=== PATIENT | male | born 1945 | race Caucasian/White ===

== ENCOUNTER 2023-07-13 09:51 | Day surgery (SDC) | payer OTHER ==
--- NOTE | 2023-07-02 15:42 | RAD REPORT ---
EXAM DESCRIPTION: Sandor Foster (2 Views)07/02/2023 3:28 pm CLINICAL HISTORY: Preop for spacer gel placement COMPARISON: 2009 FINDINGS: The lungs are moderately hyperaerated The lungs appear clear of acute infiltrate. The heart is normal size IMPRESSION: No acute abnormalities displayed
[2023-07-02 16:10] LABS: Absolute Basophils 0.1 K/uL (0-0.5); Absolute Eosinophils 0.3 K/uL (0-0.5); Absolute Lymphocytes (CBC) 1.7 K/uL (0.7-4.9); Absolute Monocytes 0.3 K/uL (0.1-1.3); Absolute Neutrophil 3.4 K/uL (1.8-8.0); Basophils % 1.5 % (0-1.3); Eosinophils % 4.8 % (0-4.4); Hematocrit 42.3 % (39.6-49.0); Hemoglobin 14.7 g/dL (13.6-17.9); Lymphocytes % 29.4 % (15.3-44.8); MCH 30.3 pg (27.0-35.0); MCHC 34.8 g/dL (32.0-36.0); MPV 9.2 fL (7.6-11.3); Monocytes % 4.7 % (3.3-12.3); Neutrophils % 59.6 % (41.7-73.7); Nucleated Red Blood Cells % 0.1 % (0-0); Platelets 176 thou/uL (152-406); RBC Red Blood Cell Count 4.86 M/uL (4.33-5.43); Red Cell Distribution Width 13.7 % (12.1-15.2)
[2023-07-02 16:13] LABS: PT Prothrombin Time 11.7 SECONDS (9.5-12.5); Protime INR 1.07
[2023-07-02 16:26] LABS: Anion Gap 6.6 mEq/L (5.0-15.0); Potassium 3.6 mEq/L (3.5-5.1)
--- NOTE | 2023-07-08 17:11 | EKG ---
Test Date: 2023-07-02 Test Time: 15:14:00 [employer] Cartoonist: DIMITRIOS MEASUREMENT RESULTS: Intervals: Rate: 81 VT: 184 QRSD: 88 QT: 392 QTc: 455 [place]: P: 85 VT: 184 QRS: 85 T: 86 INTERPRETIVE STATEMENTS: Normal sinus rhythm Normal ECG No previous ECG available for comparison Electronically Signed On 07-08-23 16:49:24 CDT by Young Pizano
[2023-07-13] MEDS: Ringers Lactate 1,000 ML IV ONE (10:20)
[2023-07-13] MEDS ORDERED: propofoL 200 MG/20 ML VIAL IV ONE (13:13)
[2023-07-13] MEDS ORDERED: FENTANYL CITR 100 MCG/2 ML ONE ×2 (13:13→14:05)
[2023-07-13] MEDS ORDERED: LIDOCAINE 1% MPF 5 ML VIAL ONE (13:13)
[2023-07-13] MEDS ORDERED: EPHEDRINE SULF 50 MG/ML VIAL ONE (13:30)
[2023-07-13] MEDS: CEFAZOLIN SODIUM 2 GM/VIAL ONE (13:38)
[2023-07-13] MEDS ORDERED: GLYCOPYRROLATE 0.2 MG/ML SYR ONE (13:42)
[2023-07-13] MEDS ORDERED: ONDANSETRON 4 MG/2 ML VIAL ONE (13:42)
[2023-07-13] MEDS ORDERED: LABETALOL 20 MG/4ML SYRINGE IV ONE (14:15)
[2023-07-13] MEDS ORDERED: PHENAZOPYRIDINE 100MG TAB PO ONE ×2 (14:57→17:59)
[2023-07-13] MEDS ORDERED: CODEINE 30MG/APAP 300MG TAB PO PRN (14:57)
[2023-07-13 16:16] VITALS: BP 163/61; TEMP 97; O2SAT 97
[2023-07-13] MEDS ORDERED: LIDOCAINE JELLY 2% 5 ML SYRINGE TOP ONE (17:22)
[2023-07-13] MEDS ORDERED: CODEINE 30MG/APAP 300MG TAB ONE (17:59)
--- NOTE | 2023-07-14 00:48 | OP ---
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 2.BPH with lower urinary tract obstruction and symptoms. 3.Urge incontinence. 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 2.BPH with lower urinary tract obstruction and symptoms. 3.Urge incontinence. Principal Procedures: 1.Transrectal ultrasound-guided insertion of SpaceOAR gel. 2.Cystoscopy. 3.Prostatic urethral lift. 4.Urethral dilation using sounds. Indication For Procedure: Mr. Fuller presented to the [facility] with elevated PSA and underwen t a biopsy revealing grade group 3 adenocarcinoma of the prostate. He was counseled on options for m anagement and ultimately elected to proceed with treatment via radiation therapy. The radiation onco logist requested SpaceOAR gel to be inserted, and the patient because of his bothersome urinary sympt oms up to and including urge incontinence refractory to initial attempts and medical therapy, was cou nseled that he would likely benefit from an effort to eliminate the obstruction prior to the radiatio n treatment. As a result, I counseled the patient extensively in the preoperative holding area as jaswinder guerra: He denied any allergy to nickel recognizing the proposed UroLift were composed of permanent metal imp lants composed of titanium and stainless steel, both nickel and alloys. I counseled him on the risks of the procedure to include chronic infection or implant erosion and inc rustation requiring explantation. Side effects of the procedure were discussed in detail to include gross hematuria, dysuria, pelvic pa in, urgency, and urge incontinence. I explained that those side effects typically occur for about 1 week following the UroLift, but could last up to 2 to 3 weeks in some cases. I also counseled him th at while he did not have tissues to proceed with the procedure to manage his obstructive urinary symp toms, in my experience, men with severe bothersome urinary symptoms including urge incontinence prior to radiation may find their symptoms significantly worsen associated with the radiation therapy. As a result, if he elected to proceed with surgical management now, this may abrogate his risk of futur e worsening of his LUTS. He had some questions about whether he could choose to do the procedure after radiation or somewhere down the line, and I explained that he certainly could elect to do that, but it would not take place for at least 6 months following radiation therapy given the time frame for healing post radiation req uired. As a result, after considering his options, he and his elected for him to proceed with t he prostatic urethral lift in addition to the SpaceOAR gel insertion. Procedure In Detail: The patient was consented in the preoperative holding area before being transfe rred to the operative suite, where general anesthesia was induced. He was given Ancef 2 g IV antimic robial prophylaxis, and pneumo boots were provided for DVT prophylaxis. He was placed in the lithoto my position, padded and secured to the table appropriately. His genitalia were elevated out of the p erineal region using an Ioban drape, and the transrectal ultrasound probe was placed via his anus int o his rectum with ease. The prostate was visualized in its entirety from the seminal vesicles and th e bladder neck all the way into the perineal region in both axilla as well as sagittal dimensions. O nce adequately positioned with the ultrasound probe held by the Stepper device, I then utilized the S paceOAR injection needle placed via the midline of his perineum beyond the urogenital diaphragm and a mo the rectal hump ultimately entering the prerectal fat plane identified by a bright area on ultra sound. Of note, prior to insertion of the needle, his perineum was prepped with Betadine. I was abl e to navigate the needle carefully under direct ultrasound guidance to mid base region of the prostat e and ensure the needle was positioned directly in the midline. I aspirated at this point to confirm absence of blood or succus, and then I injected a small quantity of saline in order to delineate the space and perform a slight degree of hydrodissection. The space delineated was right in the midline ; so, I then took the syringe with saline and replaced it with the component mixture of the SpaceOAR gel. I then slowly began injecting the gel continuously and it did note a degeneration of the space between the prostate and the rectum; however, the space seen largely created more on the patient's le ft side than on the right side as a lot of the gel did seem to fall off onto the patient's left side. Further, with assessment in sagittal dimensions, it appeared most of the gel indeed was situated in the apical mid portion of the prostate and unfortunately not extending as nicely into the base as amos. At this point, the transrectal ultrasound probe was removed, and the patient was taken out of the high lithotomy position and transitioned into the low lithotomy position. His genitalia were then prepped with Hibiclens and he was draped in standard fashion. The UroLift po rtion of the case was then begun using the 20-English sheath and visual obturator; however, because of some meatal stenosis identified, I had to dilate the meatus and fossa navicularis with urethral soun ds up to 26-English. I was then able to pass the 20-English scope through the urethra and beyond the p rostatic urethra entering his bladder. I decompressed his bladder of fluid and urine and then refill ed it with sterile saline and surveyed in its entirety. While there was [id number] trabeculati ons observed throughout and largely posteriorly, no papillary mucosal lesions, foreign bodies, or sto maura were noted. I thus switched the visual obturator for UroLift delivery device and a first implant . This implant was targeted on the patient's left side at the 1 to 2 o'clock position anterolaterall y. I targeted the first pull of the trigger to occur about 1.5 to 2 cm distal to the bladder neck on the patient's left at around the 2 o'clock position. Angling the scope about 10 to 15 degrees touch ing the prostate tissue laterally, the trigger was pulled once deploying the needle through the subst ance of the prostate. I then angled the scope laterally an additional 20 to 25 degrees in order to c ompress the tissue before pulling the trigger a second time delivering the capsular tab and partially retracting the needle. A third pull of the trigger did tension the suture and completely retracted the needle. I then advanced the scope back towards the midline and 2 to 3 mm towards the bladder nec k, at which point, I pulled the trigger a fourth time tailoring the suture and applying the urethral end piece. This did nicely elevate and lateralize the tissue in the patient's left anterolateral wal l of the prostate at the bladder neck. So I advanced the scope back into the bladder and switched th e UroLift delivery device for a new implant. This was placed in the contralateral position on the pa tient's right side at around the 11 o'clock position. Once this was placed, it did seem to unmask a degree of additional lateral lobar intruding tissue overhanging from the anterolateral on the patient 's left. As a result, I determined that a third implant would be beneficial placed on the patient's left in a stacked fashion over the implant placed at the bladder neck on the left. After survey of t he channel created using a visual obturator, I then placed a fourth and a fifth implant at the patien t's left apex and right apex respectively in order to create a beautiful continuous anterior channel evident with the bladder completely decompressed and the fluid off. As a result, I removed the cysto scope leaving fluid in the bladder and then replaced the cystoscope with an 18-English coude tip paulo ter. The efflux of fluid was clear and about 15 cc of sterile water was placed in the balloon. The patient was then taken out of the lithotomy position, awakened from general anesthesia, transferred t o a stretcher, and then transferred to the recovery room in good condition. Complications: None. Discharge Disposition: He should be standard UroLift followup with followup established about 1 catarino h from today's procedure. After likely at least 2 to 3 weeks of recovery following the UroLift, he m ay begin his radiation treatment once his symptoms have resolved immediately following the treatment. Subsequent followup may be established with me in about 1 month. BHARATH/REYNOLD Voice ID: [id number] Report ID: [id number]
== END 2023-07-13 18:05 | disposition home or self-care (01) ==
LOC: OR 09:51
PROVIDERS: ATTEND Urology
PROC: 0T7D8ZZ Dilation of Urethra, Via Natural or Artificial Opening Endoscopic (ICD-10-PCS; 2023-07-13)
PROC: 0VH43YZ Insertion of Other Device into Prostate and Seminal Vesicles, Percutaneous Approach (ICD-10-PCS; principal; 2023-07-13 11:00)
PROC: 0T7D8DZ Dilation of Urethra with Intraluminal Device, Via Natural or Artificial Opening Endoscopic (ICD-10-PCS; 2023-07-13 11:00)
DX: C61 Malignant neoplasm of prostate (principal); N40.1 Benign prostatic hyperplasia with lower urinary tract symptoms; N39.41 Urge incontinence; N13.8 Other obstructive and reflux uropathy; N35.911 Unspecified urethral stricture, male, meatal
CPT/HCPCS: 55874; 52281; 93005; 85025; 87086; 80048; 36415; 85610; 71046; J2704; J2001; J3010 ×2; J2405; J7120; 87088